=== PATIENT | female | born 1990 | race African-American/Black ===

== ENCOUNTER 2016-09-09 01:35 | Emergency (ER) | payer OTHER ==
[2016-09-09] MEDS ORDERED: Albuterol Nebulizer 2.5mg/3mL HHN STA (01:44)
[2016-09-09] MEDS ORDERED: Albuterol Nebulizer 2.5mg/3mL HHN ONE (01:45)
--- NOTE | 2016-09-09 01:58 | ED Physician Chart ---
Chief Complaint/HPI - Patient Information Date Seen:: 09/09/16 Time Seen:: 01:44 Chief Complaint:: sob History of Present Illness:: pt is a hospital employee. 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 hasnt had a asthma flare in over 1 yr. no cp. no recent uri. no cough. no rhinitis. no n/v/d. no leg edema or pain lmp 1 wk ago. denies risk of gravid. no [facility]ford pmh Allergies:: Allergies Allergy/AdvReac Type Severity Reaction Status Date / Time No Known Allergies Allergy Verified 09/09/16 01:43 Historian:: Patient Review of Systems - Review of Systems General/Constitutional: No fever, No chills, No weight loss, No weakness, No diaphoresis, No edema, No loss of appetite Skin: No skin lesions, No rash, No bruising Head: No headache, No light-headedness Eyes: No loss of vision, No pain, No diplopia ENT: No earache, No nasal drainage, No sore throat, No tinnitus Neck: No neck pain, No swelling, No thyromegaly, No stiffness, No mass noted Cardio Vascular: No chest pain, No palpitations, No PND, No orthopnea, No edema Pulmonary: SOB, No cough, No sputum, Wheezing GI: No nausea, No vomiting, No diarrhea, No pain, No melena, No hematochezia, No constipation, No hematemesis G/U: No dysuria, No frequency, No hematuria Sustainment Logistics Analyst: No vaginal discharge, No abnormal vaginal bleed Musculoskeletal: No bone or joint pain, No back pain, No muscle pain Endocrine: No polyuria, No polydipsia Psychiatric: No prior psych history, No depression, No anxiety, No suicidal ideation Hematopoietic: No bruising, No lymphadenopathy Allergic/Immuno: No urticaria, No angioedema Neurological: No syncope, No focal symptoms, No weakness, No paresthesia, No headache, No seizure, No dizziness, No confusion, No vertigo Past Medical History - Past Medical History Past Medical History: Asthma/COPD Social History: Non Smoker, Employed Medication: Reviewed Physical Exam - Physical Examination General/Constitutional: Awake, Well-developed, well-nourished, Alert, No distress, GCS 15, Non-toxic appearing, Ambulatory Other Gen/Cons comments:: alert in nad. doesnt seem sob. no obv dyspnea. no edema. no matthieu sx. no leg tndrness. speaks full sentences wo pressure. lungs clear/ deep full breaths. no wheeze heard (pt is 100% ra sao2) not toxic Head: Atraumatic Eyes: Lids, conjuctiva normal, PERRL, EOMI Skin: Nl inspection, No rash, No skin lesions, No ecchymosis, Well hydrated, No lymphadenopathy ENMT: External ears, nose nl, Nasal exam nl, Lips, teeth, gums nl Neck: Nontender, Full ROM w/o pain, No JVD, No nuchal rigidity, No bruit, No mass, No stridor Respiratory: Nl effort/Exclusion, Clear to Auscultation, No Wheeze/Rhonchi/Rales Cardio Vascular: RRR, No murmur, gallop, rubs, NL S1 S2 GI: No tenderness/rebounding/guarding, No organomegaly, No hernia, Normal BS's, Nondistended, No mass/bruits, No McBurney tenderness : No CVA tenderness Extremities: No tenderness or effusion, Full ROM, normal strength in all extremities, No edema, Normal digits & nails Neuro/Psych: Alert/oriented, DTR's symmetric, Normal sensory exam, Normal motor strength, Judgement/insight normal, Mood normal, Normal gait, No focal deficits Misc: normal gait, Normal back, No paraspinal tenderness ED Septic Shock - . Is Septic Shock (SBP<90, OR Lactate>4 mmol\L) present?: No Reassessment (Disposition) - Reassessment Reassessment:: pt feels better after neb tx. feels ok to go back to work. Reassessment Condition:: Improved - Diagnosis Diagnosis:: 1 asthma exacerbation ..improved s/p alb neb tx in ed - Aftercare/Follow up Instructions Aftercare/Follow-Up Instructions:: Counseled pt regarding lab results/diagnosis & need follow up Medication Prescribed:: rx albuterol mdi - Patient Disposition Discharge/Transfer:: Home Condition at Disposition:: Improved
== END 2016-09-09 02:10 | disposition home or self-care (01) ==
LOC: ER 01:35
DX: J45.901 Unspecified asthma with (acute) exacerbation (principal); J44.9 Chronic obstructive pulmonary disease, unspecified
CPT/HCPCS: 94640; J7613; Z7502